=== PATIENT | male | born 1965 | race Caucasian/White ===

== ENCOUNTER 2020-06-25 12:40 | Emergency (ER) | payer OTHER, SELFPAY ==
[2020-06-25] MEDS ORDERED: Boostrix 0.5 ML (Tdap) VIAL ONE (12:52)
[2020-06-25] MEDS ORDERED: Morphine 4 MG/ML VIAL ONE (13:05)
[2020-06-25] MEDS ORDERED: Ondansetron PF 4 MG/2 ML Vial ONE (13:05)
[2020-06-25] MEDS ORDERED: CEFAZOLIN 1 GM VIAL ONE (13:05)
[2020-06-25] MEDS ORDERED: Lidocaine 1% PF 5 ML VIAL ONE (13:05)
[2020-06-25 13:06] LABS: #Eosinphils 0.2 thou/uL (0.0-0.7); #Lymphocytes 1.7 thou/uL (1.20-3.40); #Monocytes 0.5 thou/uL (0.11-0.59); #Neutrophils 4.9 thou/uL (1.40-6.50); %Basophils 0.6 % (0.0-1.0); %Eosinophils 2.5 % (0.0-10.0); %Monocytes 6.2 % (0.0-10.0); %Neutrophils 67.7 % (42.0-75.0); Hemoglobin 15.9 g/dL (14.0-18.0); Mean Corpuscular HGB CONC 32.8 g/dL (32.0-36.0); Mean Corpuscular Hemoglobin 33.9 pg (27.0-31.0); Mean Platelet Volume 7.5 fL (7.4-10.4); Platelet Count 221 thou/uL (130-400); RBC Distribution Width 11.1 % (11.5-14.5); Red Blood Cell (RBC) Count 4.69 mill/uL (4.70-6.10); White Blood Cell (WBC) Count 7.3 thou/uL (4.8-10.8)
[2020-06-25] MEDS ORDERED: Sodium Chloride 0.9% 100 ML ONE (13:07)
[2020-06-25 13:13] LABS: Prothrombin Time 13.1 sec (12.0-14.7)
--- NOTE | 2020-06-25 13:20 | RAD ---
EXAM: XR Finger(s) Lt Min 2 View DATE: 06/25/2020 12:59 PM INDICATION: Left thumb injury with a table saw with laceration to left thumb COMPARISON: None. 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 IMPRESSION:Partial amputation of the left thumb through the distal tuft of the left thumb.
[2020-06-25 13:24] LABS: ALT (SGPT) 25 U/L (8-55); AST (SGOT) 18 U/L (5-34); Albumin 4.3 g/dL (3.5-5.0); Alkaline Phosphatase 65 U/L (40-110); Anion Gap 14 mmol/L (10-20); BUN (Urea Nitrogen) 19 mg/dL (8.4-25.7); Bilirubin, Total 0.8 mg/dL (0.2-1.2); Calc. Creatinine Clearance 0 mL/min (70-130); Calcium 8.9 mg/dL (7.8-10.44); Carbon Dioxide 27 mmol/L (22-29); Chloride 102 mmol/L (98-107); Globulin 3.3 g/dL (2.4-3.5); Glucose 106 mg/dL (70-105); Potassium 4.1 mmol/L (3.5-5.1); Protein, Total 7.6 g/dL (6.0-8.3); Sodium 139 mmol/L (136-145)
== END 2020-06-25 15:15 | disposition home or self-care (01) ==
LOC: BURERS 12:40
DX: S68.522A Partial traumatic transphalangeal amputation of left thumb, initial encounter (principal); W29.8XXA Contact with other powered hand tools and household machinery, initial encounter; F17.220 Nicotine dependence, chewing tobacco, uncomplicated
CPT/HCPCS: 36415; 64450; 80053; 85025; 85610; 90471; 90715; 96365; 96375; J0690; J2270; J2405; J3490